=== PATIENT | female | born 1970 | race Caucasian/White ===

== ENCOUNTER 2017-10-15 07:51 | Inpatient (IN) | payer BC, OTHER ==
[~2017-10-15] VITALS: Ht 154.9 cm; Wt 52.6 kg
[2017-10-15] MEDS ORDERED: IBUPROFEN 400 MG TABLET PO PRN (21:00)
[2017-10-15] MEDS ORDERED: MAG HYDROX/AL HYDROX/SIMETH 30 ML LIQUID UDC PO PRN (21:00)
[2017-10-15] MEDS ORDERED: MAGNESIUM HYDROXIDE 30 ML LIQUID UDC PO PRN (21:00)
[2017-10-15] MEDS ORDERED: DICYCLOMINE HCL 20 MG TABLET PO PRN (21:00)
[2017-10-15] MEDS ORDERED: MIRALAX 17 GM POWD.PACK PO PRN (21:00)
[2017-10-15] MEDS ORDERED: ONDANSETRON ODT 4 MG TAB.RAPDIS SL PRN (21:00)
[2017-10-15] MEDS ORDERED: THIAMINE HCL 200 MG/2 ML VIAL IM ONE (21:00)
[2017-10-15] MEDS ORDERED: LOPERAMIDE HCL 2 MG CAPSULE PO PRN ×2 (21:00)
[2017-10-15] MEDS ORDERED: LORAZEPAM 2 MG/1 ML VIAL IM PRN (21:00)
[2017-10-15] MEDS ORDERED: LORAZEPAM 1 MG TABLET PO PRN (21:00)
[2017-10-15] MEDS ORDERED: ONDANSETRON 4 MG/2 ML VIAL IM PRN (21:00)
[2017-10-15 21:25] LABS: BASOPHILS # (AUTO) 0.2 K/uL (0.0-8.0); BASOPHILS % (AUTO) 1.5 % (0.0-2.0); EOSINOPHILS # (AUTO) 2.2 K/uL (0.0-0.7); EOSINOPHILS % (AUTO) 16.4 % (0.0-7.0); HEMATOCRIT 40.6 % (31.2-41.9); HEMOGLOBIN 13.8 g/dL (10.9-14.3); LYMPHOCYTES # (AUTO) 4.3 K/uL (20.0-40.0); LYMPHOCYTES % (AUTO) 31.3 % (20.5-51.5); MEAN CORPUSCULAR HEMOGLOBIN 28.6 uug (24.7-32.8); MEAN CORPUSCULAR HGB CONC 34 g/dL (32.3-35.6); MEAN CORPUSCULAR VOLUME 84.3 fL (75.5-95.3); MONOCYTES # (AUTO) 0.8 K/uL (2.0-10.0); MONOCYTES % (AUTO) 6.1 % (0.0-11.0); NEUTROPHILS # (AUTO) 6.1 K/uL (1.8-8.9); NEUTROPHILS % (AUTO) 44.7 % (38.5-71.5); PLATELET COUNT (AUTO) 531 K/uL (179-408); RED BLOOD CELL COUNT(AUTO) 4.82 MIL/uL (3.63-4.92); WHITE BLOOD COUNT (AUTO) 13.7 K/uL (3.8-11.8)
[2017-10-15 21:32] LABS: *URINE HCG, QUAL NEGATIVE (NEGATIVE)
[2017-10-15 21:40] LABS: ALANINE AMINOTRANSFERASE 27 U/L (14-59); ALKALINE PHOSPHATASE 84 U/L (50-136); AMYLASE 38 U/L (25-115); ASPARTATE AMINOTRANSFERASE 20 U/L (15-37); BILIRUBIN,TOTAL 0.4 mg/dL (0.2-1.0); CARBON DIOXIDE 30 mmol/L (21-32); CHLORIDE 100 mmol/L (98-107); CREATININE 1.2 mg/dL (0.6-1.3); GLUCOSE 146 mg/dL (74-106); POTASSIUM 3.7 mmol/L (3.5-5.1); TOTAL PROTEIN, SERUM 8.6 g/dL (6.4-8.2); UREA NITROGEN, BLOOD 6 mg/dL (7-18)
[2017-10-15 21:44] LABS: ETHANOL < 3 MG/DL (0-0)
[2017-10-15 21:45] LABS: *AMPHETAMINE, URINE NEGATIVE (NEGATIVE); *BARBITURATE, URINE NEGATIVE (NEGATIVE); *CANNABINOID, URINE NEGATIVE (NEGATIVE); *COCCAINE, URINE POSITIVE (NEGATIVE); *OPIATE, URINE NEGATIVE (NEGATIVE); *PHENCYCLIDINE SCREEN,URINE NEGATIVE (NEGATIVE)
[2017-10-15 22:04] LABS: THYROID STIMULATING HORMONE 3.044 mIU/mL (0.358-3.740)
[2017-10-15] MEDS: TOPIRAMATE 100 MG TABLET PO SCH (22:15)
[2017-10-15] MEDS ORDERED: RANI-563 PO (23:27)
[2017-10-15] MEDS ORDERED: DIPH28CR TP (23:27)
[2017-10-15] MEDS ORDERED: LOSA50TA21 PO (23:27)
[2017-10-15] MEDS ORDERED: LORA2TAB PO (23:27)
[2017-10-15] MEDS ORDERED: RANI150C4 PO (23:27)
[2017-10-15] MEDS ORDERED: TOPI100T38 PO (23:27)
[2017-10-16 00:05] VITALS: BP 127/88
[2017-10-16 08:00] VITALS: BP 148/101
[2017-10-16] MEDS: LORAZEPAM 1 MG TABLET PO PRN ×2 (08:53→14:37)
[2017-10-16] MEDS: MULTIVITAMINS,THERAPEUTIC TABLET PO SCH (08:53)
[2017-10-16] MEDS: LOSARTAN POTASSIUM 50 MG TABLET PO SCH (08:53)
[2017-10-16] MEDS: THIAMINE HCL 100 MG TABLET PO SCH (08:54)
[2017-10-16] MEDS: CLONIDINE HCL 0.1 MG TABLET PO PRN (08:54)
[2017-10-16] MEDS: ACETAMINOPHEN 325 MG TABLET PO PRN (08:54)
[2017-10-16] MEDS: FOLIC ACID 1 MG TABLET PO SCH (08:54)
[2017-10-16] MEDS ORDERED: TUBERCULIN,PURIF.PROT.DERIV. 5 TU/0.1 ML TEST ID ONE (09:00)
[2017-10-16 12:00] VITALS: BP 134/85
[2017-10-16 16:00] VITALS: BP 125/78
[2017-10-16] MEDS ORDERED: IBUP-1953 PO (18:24)
[2017-10-16] MEDS ORDERED: DIPH50CA37 PO (18:24)
[2017-10-16] MEDS ORDERED: TOPI100T PO (18:24)
[2017-10-16] MEDS ORDERED: CLON0.1T14 PO (18:24)
[2017-10-16] MEDS ORDERED: LOSA50TA3 PO (18:24)
[2017-10-16] MEDS ORDERED: HYDR-3895 PO (18:24)
[2017-10-16] MEDS: HYDROXYZINE PAMOATE 25 MG CAPSULE PO PRN (18:25)
[2017-10-16 20:00] VITALS: BP 107/68
[2017-10-16] MEDS: TOPIRAMATE 100 MG TABLET PO SCH (20:28)
[2017-10-17 08:19] VITALS: BP 96/68
[2017-10-17] MEDS: LORAZEPAM 1 MG TABLET PO PRN (08:29)
[2017-10-17] MEDS: FOLIC ACID 1 MG TABLET PO SCH (08:29)
[2017-10-17] MEDS: MULTIVITAMINS,THERAPEUTIC TABLET PO SCH (08:29)
[2017-10-17] MEDS: THIAMINE HCL 100 MG TABLET PO SCH (08:29)
[2017-10-17] MEDS: LOSARTAN POTASSIUM 50 MG TABLET PO SCH (08:30)
[2017-10-17] MEDS: ACETAMINOPHEN 325 MG TABLET PO PRN (08:32)
[2017-10-17 13:09] LABS: HEPATITIS B SURFACE AG Negative (Negative)
[2017-10-17 13:18] VITALS: BP 101/58
[2017-10-17] MEDS: HYDROXYZINE PAMOATE 25 MG CAPSULE PO PRN (13:35)
[2017-10-17] MEDS: NEOMY/BACITRAC/POLYMI OINT 28.35 GM TUBE TOP SCH ×2 (14:15→18:03)
[2017-10-17 17:07] VITALS: BP 120/76
[2017-10-17 20:00] VITALS: BP 96/52
[2017-10-17] MEDS: diphenhydrAMINE 50 MG CAPSULE PO PRN (21:03)
[2017-10-17] MEDS: TOPIRAMATE 100 MG TABLET PO SCH (21:03)
[2017-10-18] VITALS: BP 107/63
[2017-10-18 08:04] VITALS: BP 116/69
[2017-10-18] MEDS: LOSARTAN POTASSIUM 50 MG TABLET PO SCH (08:44)
[2017-10-18] MEDS: FOLIC ACID 1 MG TABLET PO SCH (08:44)
[2017-10-18] MEDS: MULTIVITAMINS,THERAPEUTIC TABLET PO SCH (08:44)
[2017-10-18] MEDS: THIAMINE HCL 100 MG TABLET PO SCH (08:44)
[2017-10-18] MEDS: NEOMY/BACITRAC/POLYMI OINT 28.35 GM TUBE TOP SCH ×2 (08:45→17:06)
[2017-10-18] MEDS: HYDROXYZINE PAMOATE 25 MG CAPSULE PO PRN ×2 (11:03→17:05)
[2017-10-18] MEDS: CLONIDINE HCL 0.1 MG TABLET PO PRN ×2 (11:04→17:05)
[2017-10-18 12:00] VITALS: BP 127/78
[2017-10-18 16:55] VITALS: BP 144/82
[2017-10-18] MEDS: ACETAMINOPHEN 325 MG TABLET PO PRN (18:38)
[2017-10-18 20:00] VITALS: BP 98/60
[2017-10-18] MEDS: TOPIRAMATE 100 MG TABLET PO SCH (20:36)
[2017-10-19 08:00] VITALS: BP 102/62
[2017-10-19] MEDS: THIAMINE HCL 100 MG TABLET PO SCH (08:36)
[2017-10-19] MEDS: MULTIVITAMINS,THERAPEUTIC TABLET PO SCH (08:36)
[2017-10-19] MEDS: LOSARTAN POTASSIUM 50 MG TABLET PO SCH (08:36)
[2017-10-19] MEDS: FOLIC ACID 1 MG TABLET PO SCH (08:36)
[2017-10-19] MEDS: NEOMY/BACITRAC/POLYMI OINT 28.35 GM TUBE TOP SCH ×2 (09:11→17:36)
[2017-10-19 12:00] VITALS: BP 113/79
[2017-10-19 16:31] VITALS: BP 137/82
[2017-10-19] MEDS: ACETAMINOPHEN 325 MG TABLET PO PRN (17:36)
[2017-10-19 20:00] VITALS: BP 147/88
[2017-10-19] MEDS: diphenhydrAMINE 50 MG CAPSULE PO PRN (21:02)
[2017-10-19] MEDS: CLONIDINE HCL 0.1 MG TABLET PO PRN (21:02)
[2017-10-19] MEDS: TOPIRAMATE 100 MG TABLET PO SCH (21:02)
[2017-10-20 08:00] VITALS: BP 132/79
[2017-10-20 08:20] VITALS: BP 132/79
[2017-10-20] MEDS: MULTIVITAMINS,THERAPEUTIC TABLET PO SCH (08:20)
[2017-10-20] MEDS: FOLIC ACID 1 MG TABLET PO SCH (08:20)
[2017-10-20] MEDS: THIAMINE HCL 100 MG TABLET PO SCH (08:20)
[2017-10-20] MEDS: LOSARTAN POTASSIUM 50 MG TABLET PO SCH (08:20)
[2017-10-20] MEDS: NEOMY/BACITRAC/POLYMI OINT 28.35 GM TUBE TOP SCH (08:25)
== END 2017-10-20 10:17 | disposition home or self-care (01) | DRG 895 ==
LOC: SRC 20:19
PROVIDERS: ADMIT Internal Medicine; ATTEND Internal Medicine
PROC: HZ2ZZZZ Detoxification Services for Substance Abuse Treatment (ICD-10-PCS; principal; 2017-10-15)
PROC: HZ31ZZZ Individual Counseling for Substance Abuse Treatment, Behavioral (ICD-10-PCS; 2017-10-18)
DX: F10.239 Alcohol dependence with withdrawal, unspecified (principal); F14.20 Cocaine dependence, uncomplicated; I15.9 Secondary hypertension, unspecified; F10.230 Alcohol dependence with withdrawal, uncomplicated; F32.9 Major depressive disorder, single episode, unspecified; F41.9 Anxiety disorder, unspecified; Y90.0 Blood alcohol level of less than 20 mg/100 ml; G43.909 Migraine, unspecified, not intractable, without status migrainosus; F13.90 Sedative, hypnotic, or anxiolytic use, unspecified, uncomplicated; D72.829 Elevated white blood cell count, unspecified
CPT/HCPCS: 36415; 80307; 80353; 83735; 84443; 84703; 85025; 86580; 86592; 86705; 86803; 87340; 87806; G0480; Q0163